=== PATIENT | female | born 1980 ===

== ENCOUNTER 2021-06-18 19:24 | Emergency (ER) | payer SELFPAY ==
[2021-06-18 22:09] VITALS: BP 139/72
[2021-06-18] MEDS ORDERED: ONDANSETRON 4 MG ODT TAB PO ONE (22:15)
--- NOTE | 2021-06-18 22:23 | Emergency Department Report ---
ED Abdominal Pain HPI - General Chief Complaint: Abdominal Pain Stated Complaint: ABD PAIN Source: patient Mode of arrival: Ambulatory Limitations: Language Barrier - History of Present Illness Initial Comments: Patient 40-year-old female who presents for epigastric pain radiating to right flank x4 days. Patient states intermittent nausea and vomiting. Patient denies fevers or chills there is no dysuria hematuria or frequency. Symptoms are exacerbated by movement and palpation. Symptoms relieved by nothing tried. Patient denies history of kidney stones or cough and is a non-smoker.. MD Complaint: abdominal pain - Related Data Previous Rx's Medication Instructions Recorded Last Taken Type Ciprofloxacin HCl 500 mg PO BID 7 Days #14 tablet 06/19/21 Unknown Rx Ibuprofen [Motrin 800 MG tab] 800 mg PO Q8HR PRN #30 tablet 06/19/21 Unknown Rx Allergies Allergy/AdvReac Type Severity Reaction Status Date / Time No Known Allergies Allergy Verified 06/18/21 21:51 ED Review of Systems ROS: Stated complaint: ABD PAIN Other details as noted in HPI Constitutional: denies: chills, fever Eyes: denies: eye pain, eye discharge, vision change ENT: denies: ear pain, throat pain Respiratory: denies: cough, shortness of breath, wheezing Cardiovascular: denies: chest pain, palpitations Endocrine: no symptoms reported Gastrointestinal: abdominal pain, nausea, vomiting. denies: diarrhea, constipation, hematemesis, melena Genitourinary: denies: urgency, dysuria, frequency, hematuria, discharge, dyspareunia Musculoskeletal: back pain (right flank ). denies: joint swelling, arthralgia Skin: denies: rash, lesions Neurological: denies: headache, weakness, paresthesias Psychiatric: denies: anxiety, depression Hematological/Lymphatic: denies: easy bleeding, easy bruising ED Past Medical Hx - Past Medical History Previous Medical History?: No - Medications Home Medications: Home Medications Medication Instructions Recorded Confirmed Last Taken Type Ciprofloxacin HCl 500 mg PO BID 7 Days #14 tablet 06/19/21 Unknown Rx Ibuprofen [Motrin 800 MG tab] 800 mg PO Q8HR PRN #30 tablet 06/19/21 Unknown Rx ED Physical Exam - General Limitations: Language Barrier General appearance: alert, in no apparent distress - Head Head exam: Present: atraumatic, normocephalic - Eye Eye exam: Present: normal appearance, EOMI Pupils: Present: normal accommodation - ENT ENT exam: Present: mucous membranes moist - Neck Neck exam: Present: normal inspection, full ROM. Absent: tenderness - Respiratory Respiratory exam: Present: normal lung sounds bilaterally. Absent: respiratory distress, wheezes, stridor - Cardiovascular Cardiovascular Exam: Present: regular rate, normal heart sounds - GI/Abdominal GI/Abdominal exam: Present: soft, normal bowel sounds. Absent: distended, tenderness, guarding, rebound, rigid, bruit, hernia - Rectal Rectal exam: Present: deferred - Extremities Exam Extremities exam: Present: normal inspection, full ROM. Absent: tenderness - Back Exam Back exam: Present: full ROM, CVA tenderness (R). Absent: CVA tenderness (L) - Neurological Exam Neurological exam: Present: alert, oriented X3, CN II-XII intact, normal gait - Psychiatric Psychiatric exam: Present: normal affect, normal mood - Skin Skin exam: Present: warm, dry, intact, normal color. Absent: rash ED Course Vital Signs 06/18/21 06/18/21 22:01 22:08 Temperature 98.5 F Pulse Rate 64 Blood Pressure 139/72 O2 Sat by Pulse 97 Oximetry ED Medical Decision Making - Lab Data Result diagrams: 06/18/21 22:19 06/18/21 22:19 - Radiology Data Radiology results: report reviewed, image reviewed FINDINGS: Lungs/bones: Lung bases are clear Abdomen/pelvis: Within limits of a noncontrast exam the liver, spleen, adrenal glands, pancreas, gallbladder and upper GI tract appear normal. Gallbladder is contracted. No definite renal stones are seen. No definite ureteral stone is identified. No focal inflammatory changes seen within the bowel loops. No CT evidence for appendicitis. No dominant adenopathy is seen. Small sclerotic lesion within the right iliac bone could represent bone island measuring 8 mm. No acute bone findings are seen. IMPRESSION: 1. No renal or ureteral stones are seen. No hydronephrosis. 2. No focal inflammatory change in the bowel loops. No bowel obstruction. Signer Name: Sridhar Díaz MD Signed: 06/19/2021 12:00 AM Workstation Name: [id number] - Medical Decision Making CT abdomen pelvis normal, UA positive: WBCs leukocytes bacteria, +2 blood, plan: cipro , pyridium follow up with primary care doctor in 2-3 days, pt verbalized agreement and understanding of discharge plan. Critical care attestation.: If time is entered above; I have spent that time in minutes in the direct care of this critically ill patient, excluding procedure time. ED Disposition Clinical Impression: UTI (urinary tract infection) Qualifiers: Urinary tract infection type: acute cystitis Hematuria presence: without hematuria Qualified Code(s): N30.00 - Acute cystitis without hematuria Disposition: HOME / SELF CARE / HOMELESS Is pt being admited?: No Does the pt Need Aspirin: No Condition: Critical Instructions: Abdominal Pain (ED), Urinary Tract Infection, Adult Additional Instructions: Take all medications as prescribed, follow up with your primary care doctor rin 1-2 days. Prescriptions: Ciprofloxacin HCl 500 mg PO BID 7 Days #14 tablet Ibuprofen [Motrin 800 MG tab] 800 mg PO Q8HR PRN #30 tablet PRN Reason: Pain , Severe (7-10) Referrals: JOSE DUVAL MD [Referring] - 3-5 Days Forms: Work/School Release Form(ED) Time of Disposition: 00:32
[2021-06-18 22:41] LABS: Basophils # (Auto) 0.1 K/mm3 (0.0-0.1); Basophils % (Auto) 0.8 % (0.0-1.8); Eosinophils # (Auto) 0.2 K/mm3 (0.0-0.4); Hematocrit 38.7 % (30.3-42.9); Hemoglobin 13.4 gm/dl (10.1-14.3); Lymphocytes # (Auto) 4.2 K/mm3 (1.2-5.4); Lymphocytes % (Auto) 40.2 % (13.4-35.0); Mean Corpuscular HGB Conc 35 % (30-34); Mean Corpuscular Volume 90 fl (79-97); Monocytes # (Auto) 0.7 K/mm3 (0.0-0.8); Monocytes % (Auto) 6.8 % (0.0-7.3); Platelet Count 309 K/mm3 (140-440); Red Blood Count 4.31 M/mm3 (3.65-5.03); Red Cell Distribution Width 13.3 % (13.2-15.2)
[2021-06-18 23:04] LABS: Alanine Aminotransferase 30 units/L (7-56); Albumin 4.2 g/dL (3.9-5); Blood Urea Nitrogen 13 mg/dL (7-17); Hemolysis Index 10
[2021-06-18 23:10] LABS: BUN/Creatinine Ratio 26
[2021-06-18 23:12] LABS: HCG Qualitative,Urine Negative (Negative)
[2021-06-18 23:14] LABS: Bilirubin,Urine NEG (Negative); Blood,Urine NEG (Negative); Color,Urine Yellow (Yellow); Mucus,Urine FEW /HPF; Protein,Urine <15 mg/dL mg/dL (Negative)
--- NOTE | 2021-06-19 00:04 | Cat Scan Report ---
CT ABDOMEN AND PELVIS WITHOUT CONTRAST HISTORY: Epigastric abd pain that radiates to RIGHT flank with N/V x 4 day. COMPARISON: None. TECHNIQUE: CT images of the abdomen and pelvis were obtained without administration of intravenous co ntrast. All CT scans at this location are performed using CT dose reduction for ALARA by means of au tomated exposure control. FINDINGS: Lungs/bones: Lung bases are clear Abdomen/pelvis: Within limits of a noncontrast exam the liver, spleen, adrenal glands, pancreas, gal lbladder and upper GI tract appear normal. Gallbladder is contracted. No definite renal stones are se en. No definite ureteral stone is identified. No focal inflammatory changes seen within the bowel loo ps. No CT evidence for appendicitis. No dominant adenopathy is seen. Small sclerotic lesion within th e right iliac bone could represent bone island measuring 8 mm. No acute bone findings are seen. IMPRESSION: 1. No renal or ureteral stones are seen. No hydronephrosis. 2. No focal inflammatory change in the bowel loops. No bowel obstruction. Signer Name: Sridhar Díaz MD Signed: 06/19/2021 12:00 AM Workstation Name: [id number]
== END 2021-06-19 01:18 | disposition home or self-care (01) ==
LOC: ED 19:24
DX: N39.0 Urinary tract infection, site not specified (principal); Z79.899 Other long term (current) drug therapy
CPT/HCPCS: 36415; 74176; 80053; 81001; 81025; 83690; 85025; 87086; 99284